=== PATIENT | male | born 1990 | race Caucasian/White ===

== ENCOUNTER 2020-04-18 11:57 | Emergency (ER) | payer OTHER ==
[~2020-04-18] VITALS: Ht 167.6 cm; Wt 108.9 kg
[2020-04-18 12:02] VITALS: BP_SYST 146
[2020-04-18] MEDS ORDERED: ceFAZolin SODIUM 1 GM in D5W 50 ML IV ONE (12:15)
[2020-04-18] MEDS ORDERED: DIPH-TET-PERTUS Vaccine 0.5 ML VIAL (ADACEL) I.M. ONE (12:15)
[2020-04-18] MEDS ORDERED: ceFAZolin SODIUM 1 GM VIAL ONE (12:51)
[2020-04-18] MEDS ORDERED: LIDOCAINE 1% 10 MG/ML, 20 ML MDV SUBCUT ONE (13:00)
[2020-04-18 14:56] VITALS: BP_SYST 147
== END 2020-04-18 14:55 | disposition home or self-care (01) ==
LOC: SED 11:57
DX: S62.600A Fracture of unspecified phalanx of right index finger, initial encounter for closed fracture (principal); W31.89XA Contact with other specified machinery, initial encounter; Y93.89 Activity, other specified; Y92.89 Other specified places as the place of occurrence of the external cause; Y99.8 Other external cause status
CPT/HCPCS: 12001; 73130; 90471; 90715; 96374; 99284; J0690; J2001